=== PATIENT | male | born 1945 | race Caucasian/White ===

== ENCOUNTER 2023-01-05 07:30 | Emergency (ER) | payer MEDICARE, OTHER ==
[~2023-01-05] VITALS: Ht 175.3 cm; Wt 97.7 kg
[2023-01-05] MEDS ORDERED: FOLI0.8T2 PO (07:41)
[2023-01-05] MEDS ORDERED: CARV6 PO (07:41)
[2023-01-05] MEDS ORDERED: BUPR-72 PO (07:41)
[2023-01-05] MEDS ORDERED: SODI650T33 PO (07:41)
[2023-01-05] MEDS ORDERED: SIME80TA82 PO (07:41)
[2023-01-05] MEDS ORDERED: SEVE800 PO (07:41)
[2023-01-05] MEDS ORDERED: BUSP5TAB20 PO (07:41)
[2023-01-05] MEDS ORDERED: HYDR-4723 PO (07:41)
[2023-01-05] MEDS ORDERED: LORA-1000 PO (07:41)
[2023-01-05] MEDS ORDERED: TAMS-13 PO (07:41)
[2023-01-05] MEDS ORDERED: INSU100V SQ (07:41)
[2023-01-05] MEDS ORDERED: MELA5TAB40 PO (07:41)
[2023-01-05] MEDS ORDERED: SENN-187 PO (07:41)
[2023-01-05] MEDS ORDERED: ALPR-705 PO (07:41)
[2023-01-05] MEDS ORDERED: POLY17PO47 PO (07:41)
[2023-01-05 09:08] LABS: BASOPHILS % (AUTO) 0.7 % (0.0-2.0); EOSINOPHILS % (AUTO) 1.7 % (1.0-6.0); HEMATOCRIT 23.2 % (41-53); HEMOGLOBIN 7.8 g/dL (13.5-17.5); LYMPHOCYTES # (AUTO) 0.5 K/uL (1.0-4.8); MEAN CORPUSCULAR HEMOGLOBIN 31.1 pg (26.0-34.0); MEAN CORPUSCULAR HGB CONC 33.8 G/dL (31.0-37.0); MEAN CORPUSCULAR VOLUME 92 fL (80-100); MONOCYTES # (AUTO) 0.7 K/uL (0.1-1.0); MONOCYTES % (AUTO) 8.1 % (2.0-9.0); NEUTROPHILS % (AUTO) 83.5 % (40.0-70.0); PLATELET COUNT (AUTO) 232 K/uL (150-450); RED BLOOD CELL COUNT(AUTO) 2.52 MIL/uL (4.50-5.90); RED CELL DISTRIBUTION WIDTH 16.5 % (11.5-14.5)
[2023-01-05 09:27] LABS: CALCIUM, TOTAL 8.8 mg/dL (8.8-10.5); CREATININE 3.2 mg/dL (0.60-1.30); POTASSIUM 3.8 mmol/L (3.5-5.1)
[2023-01-05 09:32] LABS: ALBUMIN 2.6 g/dL (3.4-5.0); BILIRUBIN,TOTAL 0.5 mg/dL (0.1-1.0); TOTAL PROTEIN, SERUM 6.6 g/dL (6.4-8.2)
[2023-01-05 10:02] VITALS: BP 125/73
== END 2023-01-05 11:22 | disposition home or self-care (01) ==
LOC: EMS 07:32
DX: D64.9 Anemia, unspecified (principal); F41.9 Anxiety disorder, unspecified; F03.90 Unspecified dementia, unspecified severity, without behavioral disturbance, psychotic disturbance, mood disturbance, and anxiety; F32.A Depression, unspecified; E11.9 Type 2 diabetes mellitus without complications; I10 Essential (primary) hypertension; N40.0 Benign prostatic hyperplasia without lower urinary tract symptoms; Z98.890 Other specified postprocedural states
CPT/HCPCS: 80053; 85025; 86850; 86900; 86901; 99283

== ENCOUNTER 2023-02-09 08:42 | Inpatient (IN) | payer MEDICARE, OTHER ==
[~2023-02-09] VITALS: Ht 182.9 cm; Wt 72.1 kg
[~2023-02-09 08:42] MED LIST: ALPR-705 PO; BUPR-72 PO; BUSP5TAB20 PO; CARV6 PO; FOLI0.8T2 PO; HYDR-4723 PO; INSU100V SQ; LORA-1000 PO; MELA5TAB40 PO; POLY17PO47 PO; SENN-376 PO; SEVE800 PO; SIME80TA82 PO; SODI650T33 PO; TAMS-13 PO
[2023-02-09] MEDS ORDERED: CEFEPIME HCL 2 GM in DEXTROSE 5%-WATER 50 ML IV ONE (09:30)
[2023-02-09] MEDS ORDERED: VANCOMYCIN HCL 1.25 GM in DEXTROSE 5%-WATER 250 ML IV ONE (09:30)
[2023-02-09] MEDS ORDERED: 0.9% SODIUM CHLORIDE 10 ML SYRINGE IVP PRN ×2 (09:30→11:45)
[2023-02-09 09:31] LABS: GLUCOMETER DEV NAME(LOC) ER.6
[2023-02-09] MEDS ORDERED: AMLO-257 PO (09:38)
[2023-02-09] MEDS ORDERED: ACET325S20 PR (09:38)
[2023-02-09] MEDS ORDERED: BUSP5TAB20 PO (09:38)
[2023-02-09] MEDS ORDERED: CLON0.1T2 PO (09:38)
[2023-02-09 09:55] LABS: BASOPHILS % (AUTO) 0.5 % (0.0-2.0); EOSINOPHILS % (AUTO) 0.8 % (1.0-6.0); HEMATOCRIT 28.1 % (41-53); HEMOGLOBIN 9.2 g/dL (13.5-17.5); LYMPHOCYTES # (AUTO) 0.5 K/uL (1.0-4.8); LYMPHOCYTES % (AUTO) 6.9 % (22.0-44.0); MEAN CORPUSCULAR HEMOGLOBIN 29.2 pg (26.0-34.0); MEAN CORPUSCULAR HGB CONC 32.7 G/dL (31.0-37.0); MEAN CORPUSCULAR VOLUME 89 fL (80-100); MONOCYTES # (AUTO) 0.5 K/uL (0.1-1.0); MONOCYTES % (AUTO) 6.6 % (2.0-9.0); NEUTROPHILS # (AUTO) 6.6 K/uL (1.8-7.7); PLATELET COUNT (AUTO) 258 K/uL (150-450); RED BLOOD CELL COUNT(AUTO) 3.14 MIL/uL (4.50-5.90); RED CELL DISTRIBUTION WIDTH 15.6 % (11.5-14.5)
[2023-02-09 09:58] LABS: NEUTROPHILS % (AUTO) 85.2 % (40.0-70.0)
[2023-02-09 10:06] LABS: ANION GAP 6 mmol/L (8-16); CALCIUM, TOTAL 8.9 mg/dL (8.8-10.5); CARBON DIOXIDE 32 mmol/L (22-29); CHLORIDE 99 mmol/L (98-107); CREATININE 2.94 mg/dL (0.60-1.30); GLOMERULAR FILTR. RATE CALC 21 mL/min (>60); GLUCOSE,RANDOM 106 mg/dL (70-110); POTASSIUM 3.9 mmol/L (3.5-5.1); SODIUM SERUM 137 mmol/L (136-145)
[2023-02-09 10:07] LABS: INR 1.1 (0.9-1.1); PROTHROMBIN TIME 11.9 SEC (9.4-11.6)
[2023-02-09 10:12] LABS: ALBUMIN 2.3 g/dL (3.4-5.0); ALKALINE PHOSPHATASE 87 U/L (46-116); ASPARTATE AMINOTRANSFERASE 13 U/L (15-37); BILIRUBIN,TOTAL 0.5 mg/dL (0.1-1.0); CREATINE KINASE, TOTAL ONLY 10 U/L (39-308); LACTIC ACID 0.8 mmol/L (0.4-2.0); TOTAL PROTEIN, SERUM 6.7 g/dL (6.4-8.2)
[2023-02-09 10:13] LABS: B-TYPE NATRIURETIC PEPTIDE 2130 pg/mL (0-100)
[2023-02-09 10:30] LABS: ALANINE AMINOTRANSFERASE < 6 U/L (12-78)
[2023-02-09] MEDS ORDERED: ACETAMINOPHEN 325 MG TABLET PO PRN (11:45)
[2023-02-09] MEDS ORDERED: ONDANSETRON HCL 4 MG/2 ML VIAL IVP PRN ×2 (11:45→14:00)
[2023-02-09 13:46] VITALS: BP 156/82; PULSE 77; RESP 20; TEMP 97.5
[2023-02-09] MEDS ORDERED: MAGNESIUM HYDROXIDE SUSPENSION 30 ML UDCUP PO PRN (14:00)
[2023-02-09] MEDS ORDERED: MELATONIN 5 MG TABLET PO PRN (14:00)
[2023-02-09] MEDS ORDERED: BISACODYL 10 MG RECTAL RECTAL SUPPOSITORY PR PRN (14:00)
[2023-02-09] MEDS ORDERED: VANCOMYCIN 1GM/WATER(PEG/NADA) 200 ML IV PRN (14:30)
[2023-02-09] MEDS ORDERED: PNEUMOCOCCAL VACCINE POLYVALENT 0.5 ML VIAL [PPSV23] IM. ONE (16:45)
[2023-02-09] MEDS: HEPARIN SODIUM,PORCINE 5,000 UNITS/ML VIAL SQ SCH ×2 (16:45→22:30)
[2023-02-09 17:41] LABS: GLUCOMETER DEV NAME(LOC) 6S.2
[2023-02-09] MEDS: SEVELAMER CARBONATE 800 MG TABLET PO SCH (18:25)
[2023-02-09] MEDS: DEXTROSE 5%-0.45% SODIUM CHL 1,000 ML IV SCH (18:37)
[2023-02-09 19:52] VITALS: BP 159/87; PULSE 80; RESP 20; TEMP 98.5
[2023-02-09] MEDS: DOCUSATE SODIUM 100 MG CAPSULE PO SCH ×2 (21:00→21:50)
[2023-02-09] MEDS: CARVEDILOL 6.25 MG TABLET PO SCH ×2 (21:00→21:50)
[2023-02-09] MEDS: TAMSULOSIN HCL 0.4 MG CAPSULE PO SCH (21:50)
[2023-02-09 22:06] LABS: GLUCOMETER DEV NAME(LOC) 6S.1B
[2023-02-10] VITALS (13 sets, daily range): BP systolic 119–175; BP diastolic 64–108; PULSE 69–81; RESP 16–22; TEMP 97.2–98.9
[2023-02-10 06:16] LABS: GLUCOMETER DEV NAME(LOC) 6S.2
[2023-02-10 06:30] LABS: BASOPHILS % (AUTO) 0.6 % (0.0-2.0); EOSINOPHILS % (AUTO) 0.8 % (1.0-6.0); HEMATOCRIT 27.1 % (41-53); HEMOGLOBIN 8.8 g/dL (13.5-17.5); LYMPHOCYTES # (AUTO) 0.6 K/uL (1.0-4.8); LYMPHOCYTES % (AUTO) 8.2 % (22.0-44.0); MEAN CORPUSCULAR HEMOGLOBIN 28.5 pg (26.0-34.0); MEAN CORPUSCULAR HGB CONC 32.3 G/dL (31.0-37.0); MEAN CORPUSCULAR VOLUME 88 fL (80-100); MONOCYTES # (AUTO) 0.5 K/uL (0.1-1.0); MONOCYTES % (AUTO) 6.9 % (2.0-9.0); NEUTROPHILS # (AUTO) 5.6 K/uL (1.8-7.7); NEUTROPHILS % (AUTO) 83.5 % (40.0-70.0); PLATELET COUNT (AUTO) 266 K/uL (150-450); RED BLOOD CELL COUNT(AUTO) 3.08 MIL/uL (4.50-5.90); RED CELL DISTRIBUTION WIDTH 15.3 % (11.5-14.5)
[2023-02-10 06:49] LABS: VANCOMYCIN,RANDOM 12.3 mcg/mL (25.0-50.0)
[2023-02-10] MEDS ORDERED: CeFAZolin 1 GM/DEXTROSE 50 ML BAG IV ONE (07:00)
[2023-02-10] MEDS ORDERED: BUPIVACAINE HCL 0.25% 50 ML VIAL ONE ×2 (07:12→08:27)
[2023-02-10] MEDS ORDERED: VANCOMYCIN HCL 1 GM/VIAL ONE (07:15)
[2023-02-10] MEDS ORDERED: SODIUM CL IRRIG SOLN BAG 3,000 ML IRRIG ONE (07:16)
[2023-02-10] MEDS ORDERED: BUPIVACAINE LIPOSOME/PF 1.3%-13.3MG/ML SUSPENSION 20 ML VIAL INJ ONE (07:30)
[2023-02-10] MEDS ORDERED: NOREPINEPHRINE 8 MG/0.9 % NACL 250 ML IV PRN (07:30)
[2023-02-10] MEDS ORDERED: SODIUM CHLORIDE 0.9% 1,000 ML ONE (07:31)
[2023-02-10 07:33] LABS: ALBUMIN 2.1 g/dL (3.4-5.0); ALKALINE PHOSPHATASE 77 U/L (46-116); ANION GAP 8 mmol/L (8-16); ASPARTATE AMINOTRANSFERASE 12 U/L (15-37); BILIRUBIN,TOTAL 0.4 mg/dL (0.1-1.0); CALCIUM, TOTAL 8.7 mg/dL (8.8-10.5); CARBON DIOXIDE 27 mmol/L (22-29); CHLORIDE 100 mmol/L (98-107); CREATININE 3.89 mg/dL (0.60-1.30); GLOMERULAR FILTR. RATE CALC 15 mL/min (>60); GLUCOSE,RANDOM 124 mg/dL (70-110); POTASSIUM 3.9 mmol/L (3.5-5.1); SODIUM SERUM 135 mmol/L (136-145); TOTAL PROTEIN, SERUM 6.2 g/dL (6.4-8.2)
[2023-02-10 07:35] LABS: ALANINE AMINOTRANSFERASE < 6 U/L (12-78)
[2023-02-10] MEDS: SEVELAMER CARBONATE 800 MG TABLET PO SCH ×3 (08:00→20:49)
[2023-02-10] MEDS ORDERED: MUPIROCIN CALCIUM 2% 22 GM OINTMENT ONE (08:27)
[2023-02-10] MEDS ORDERED: BUPIVACAINE HCL 0.25% 50 ML VIAL ID ONE (08:28)
[2023-02-10] MEDS ORDERED: MUPIROCIN CALCIUM 2% 22 GM OINTMENT TP ONE (08:30)
[2023-02-10] MEDS ORDERED: VANCOMYCIN HCL 1 GM/VIAL IRRIG ONE (08:33)
[2023-02-10] MEDS: CeFAZolin 1 GM/DEXTROSE 50 ML IV SCH ×2 (14:00→20:41)
[2023-02-10] MEDS ORDERED: VANCOMYCIN 1GM/WATER(PEG/NADA) 200 ML IV ONE (14:00)
[2023-02-10] MEDS: DOCUSATE SODIUM 100 MG CAPSULE PO SCH ×2 (14:01→20:49)
[2023-02-10] MEDS: HEPARIN SODIUM,PORCINE 5,000 UNITS/ML VIAL SQ SCH (14:01)
[2023-02-10] MEDS: CARVEDILOL 6.25 MG TABLET PO SCH ×2 (14:01→20:48)
[2023-02-10] MEDS: PANTOPRAZOLE SODIUM 40 MG DR TABLET PO SCH (14:01)
[2023-02-10] MEDS: AmLODIPine BESYLATE 5 MG TABLET PO SCH (14:02)
[2023-02-10] MEDS: HYDROCODONE/ACETAMINOPHEN 5-325 MG TABLET PO PRN ×2 (15:24→21:06)
[2023-02-10] MEDS: OXYGEN THERAPY IH SCH (20:00)
[2023-02-10 20:31] LABS: GLUCOMETER DEV NAME(LOC) 6N.1
[2023-02-10] MEDS: TAMSULOSIN HCL 0.4 MG CAPSULE PO SCH (20:48)
[2023-02-10] MEDS ORDERED: HEPARIN SODIUM,PORCINE 1,000 UNITS/ML VIAL IVP ONE (21:36)
[2023-02-11] MEDS: CeFAZolin 1 GM/DEXTROSE 50 ML IV SCH ×3 (03:47→19:53)
[2023-02-11 05:02] VITALS: BP 165/99; PULSE 82; RESP 20; TEMP 97.6
[2023-02-11] MEDS: HYDROCODONE/ACETAMINOPHEN 5-325 MG TABLET PO PRN ×2 (05:59→19:52)
[2023-02-11] MEDS: AmLODIPine BESYLATE 5 MG TABLET PO SCH (06:00)
[2023-02-11 06:44] LABS: BASOPHILS % (AUTO) 0.4 % (0.0-2.0); EOSINOPHILS % (AUTO) 0.5 % (1.0-6.0); HEMATOCRIT 25.3 % (41-53); HEMOGLOBIN 8.4 g/dL (13.5-17.5); LYMPHOCYTES # (AUTO) 0.5 K/uL (1.0-4.8); LYMPHOCYTES % (AUTO) 5.9 % (22.0-44.0); MEAN CORPUSCULAR HEMOGLOBIN 29.4 pg (26.0-34.0); MEAN CORPUSCULAR HGB CONC 33.3 G/dL (31.0-37.0); MEAN CORPUSCULAR VOLUME 88 fL (80-100); MONOCYTES # (AUTO) 0.6 K/uL (0.1-1.0); MONOCYTES % (AUTO) 6.3 % (2.0-9.0); NEUTROPHILS # (AUTO) 7.6 K/uL (1.8-7.7); PLATELET COUNT (AUTO) 242 K/uL (150-450); RED BLOOD CELL COUNT(AUTO) 2.87 MIL/uL (4.50-5.90); RED CELL DISTRIBUTION WIDTH 15.3 % (11.5-14.5)
[2023-02-11 06:49] LABS: NEUTROPHILS % (AUTO) 86.9 % (40.0-70.0)
[2023-02-11 07:01] LABS: CALCIUM, TOTAL 8.4 mg/dL (8.8-10.5); CREATININE 2.95 mg/dL (0.60-1.30); PHOSPHORUS 2.6 mg/dL (2.5-4.9); POTASSIUM 3.8 mmol/L (3.5-5.1)
[2023-02-11] MEDS: OXYGEN THERAPY IH SCH ×2 (08:00→20:00)
[2023-02-11] MEDS: HEPARIN SODIUM,PORCINE 5,000 UNITS/ML VIAL SQ SCH ×4 (08:00→23:20)
[2023-02-11 08:10] VITALS: BP 154/72; PULSE 79; RESP 20; TEMP 97.4
[2023-02-11 08:46] LABS: GLUCOMETER DEV NAME(LOC) 6S.2
[2023-02-11] MEDS: CARVEDILOL 6.25 MG TABLET PO SCH ×2 (08:48→19:51)
[2023-02-11] MEDS: DEXTROSE 5%-0.45% SODIUM CHL 1,000 ML IV SCH (08:49)
[2023-02-11] MEDS: SEVELAMER CARBONATE 800 MG TABLET PO SCH ×3 (08:49→18:25)
[2023-02-11] MEDS: PANTOPRAZOLE SODIUM 40 MG DR TABLET PO SCH (08:56)
[2023-02-11] MEDS: DOCUSATE SODIUM 100 MG CAPSULE PO SCH ×2 (08:56→20:02)
[2023-02-11 15:56] LABS: GLUCOMETER DEV NAME(LOC) 6S.2
[2023-02-11 16:19] VITALS: BP 132/63; PULSE 69; RESP 18; TEMP 98
[2023-02-11] MEDS: MORPHINE SULFATE 2 MG/ML SYRINGE IVP PRN (18:44)
[2023-02-11 19:37] VITALS: BP 158/73; PULSE 88; RESP 18; TEMP 97.4
[2023-02-11] MEDS: TAMSULOSIN HCL 0.4 MG CAPSULE PO SCH (20:02)
[2023-02-11] MEDS ORDERED: SODIUM CHLORIDE 0.9% 500 ML IV ONE (20:05)
[2023-02-11] MEDS: ZOLPIDEM TARTRATE 5 MG TABLET PO PRN (21:42)
[2023-02-12] MEDS: HYDROCODONE/ACETAMINOPHEN 5-325 MG TABLET PO PRN (01:04)
[2023-02-12 04:10] VITALS: BP 162/84; PULSE 83; RESP 20; TEMP 97.9
[2023-02-12 05:11] LABS: GLUCOMETER DEV NAME(LOC) 6N.1
[2023-02-12 05:11] LABS: GLUCOMETER DEV NAME(LOC) 4E.2
[2023-02-12] MEDS: CARVEDILOL 6.25 MG TABLET PO SCH ×2 (05:51→22:14)
[2023-02-12 07:47] LABS: BASOPHILS % (AUTO) 0.3 % (0.0-2.0); EOSINOPHILS % (AUTO) 1.2 % (1.0-6.0); HEMATOCRIT 25.5 % (41-53); HEMOGLOBIN 8.5 g/dL (13.5-17.5); LYMPHOCYTES # (AUTO) 0.5 K/uL (1.0-4.8); LYMPHOCYTES % (AUTO) 6.2 % (22.0-44.0); MEAN CORPUSCULAR HEMOGLOBIN 29.3 pg (26.0-34.0); MEAN CORPUSCULAR HGB CONC 33.1 G/dL (31.0-37.0); MEAN CORPUSCULAR VOLUME 88 fL (80-100); MONOCYTES # (AUTO) 0.6 K/uL (0.1-1.0); MONOCYTES % (AUTO) 7.3 % (2.0-9.0); NEUTROPHILS # (AUTO) 6.5 K/uL (1.8-7.7); PLATELET COUNT (AUTO) 209 K/uL (150-450); RED BLOOD CELL COUNT(AUTO) 2.89 MIL/uL (4.50-5.90); RED CELL DISTRIBUTION WIDTH 15.7 % (11.5-14.5)
[2023-02-12 07:54] LABS: CALCIUM, TOTAL 8.4 mg/dL (8.8-10.5); CREATININE 4.37 mg/dL (0.60-1.30); POTASSIUM 3.8 mmol/L (3.5-5.1)
[2023-02-12] MEDS: OXYGEN THERAPY IH SCH ×2 (08:00→20:00)
[2023-02-12] MEDS: HEPARIN SODIUM,PORCINE 5,000 UNITS/ML VIAL SQ SCH ×3 (08:00→23:26)
[2023-02-12 08:02] VITALS: BP 158/82; PULSE 84; RESP 20; TEMP 98
[2023-02-12] MEDS: SEVELAMER CARBONATE 800 MG TABLET PO SCH ×3 (08:07→18:12)
[2023-02-12] MEDS: AmLODIPine BESYLATE 5 MG TABLET PO SCH (08:07)
[2023-02-12] MEDS: PANTOPRAZOLE SODIUM 40 MG DR TABLET PO SCH (08:14)
[2023-02-12] MEDS: DOCUSATE SODIUM 100 MG CAPSULE PO SCH ×2 (08:14→21:00)
[2023-02-12 10:20] LABS: GLUCOMETER DEV NAME(LOC) 6S.2
[2023-02-12 15:06] VITALS: BP 148/78; PULSE 78; RESP 18; TEMP 97.8
[2023-02-12] MEDS: TAMSULOSIN HCL 0.4 MG CAPSULE PO SCH (21:00)
[2023-02-12 22:14] VITALS: BP 174/84; PULSE 86; RESP 20; TEMP 97.8
[2023-02-13] VITALS (12 sets, daily range): BP systolic 117–174; BP diastolic 70–84; PULSE 74–85; RESP 16–20; TEMP 97.6–98.6
[2023-02-13 01:46] LABS: GLUCOMETER DEV NAME(LOC) 6S.2
[2023-02-13] MEDS: HYDROCODONE/ACETAMINOPHEN 5-325 MG TABLET PO PRN (05:57)
[2023-02-13 06:47] LABS: GLUCOMETER DEV NAME(LOC) 6N.1
[2023-02-13] MEDS: OXYGEN THERAPY IH SCH ×2 (08:00→20:00)
[2023-02-13] MEDS: HEPARIN SODIUM,PORCINE 5,000 UNITS/ML VIAL SQ SCH ×3 (08:00→23:59)
[2023-02-13] MEDS: CARVEDILOL 6.25 MG TABLET PO SCH ×2 (08:09→21:05)
[2023-02-13] MEDS: AmLODIPine BESYLATE 5 MG TABLET PO SCH (08:09)
[2023-02-13] MEDS: SEVELAMER CARBONATE 800 MG TABLET PO SCH ×3 (08:09→17:45)
[2023-02-13] MEDS: EPOETIN ALFA 10,000 UNITS/ML 2 ML VIAL SQ SCH (08:13)
[2023-02-13] MEDS: DOCUSATE SODIUM 100 MG CAPSULE PO SCH ×3 (08:21→21:05)
[2023-02-13] MEDS: PANTOPRAZOLE SODIUM 40 MG DR TABLET PO SCH (08:21)
[2023-02-13] MEDS ORDERED: SODIUM CHLORIDE 0.9% 2,000 ML ONE (10:34)
[2023-02-13] MEDS: ASPIRIN 81 MG CHEWABLE TABLET PO SCH (12:00)
[2023-02-13] MEDS ORDERED: VANCOMYCIN HCL 750 MG in DEXTROSE 5%-WATER 250 ML IV ONE (21:00)
[2023-02-13] MEDS: TAMSULOSIN HCL 0.4 MG CAPSULE PO SCH (21:05)
[2023-02-13 21:31] LABS: GLUCOMETER DEV NAME(LOC) 6S.2
[2023-02-14 05:45] VITALS: BP 177/92; PULSE 83; RESP 20; TEMP 98.5
[2023-02-14 06:11] LABS: GLUCOMETER DEV NAME(LOC) 6N.1
[2023-02-14] MEDS: AmLODIPine BESYLATE 5 MG TABLET PO SCH (06:16)
[2023-02-14 06:34] LABS: BASOPHILS % (AUTO) 0.5 % (0.0-2.0); EOSINOPHILS % (AUTO) 1.3 % (1.0-6.0); HEMATOCRIT 28.4 % (41-53); HEMOGLOBIN 9.3 g/dL (13.5-17.5); LYMPHOCYTES # (AUTO) 0.5 K/uL (1.0-4.8); LYMPHOCYTES % (AUTO) 7.8 % (22.0-44.0); MEAN CORPUSCULAR HEMOGLOBIN 28.7 pg (26.0-34.0); MEAN CORPUSCULAR HGB CONC 32.7 G/dL (31.0-37.0); MEAN CORPUSCULAR VOLUME 88 fL (80-100); MONOCYTES # (AUTO) 0.5 K/uL (0.1-1.0); MONOCYTES % (AUTO) 7.2 % (2.0-9.0); NEUTROPHILS # (AUTO) 5.2 K/uL (1.8-7.7); NEUTROPHILS % (AUTO) 83.2 % (40.0-70.0); PLATELET COUNT (AUTO) 227 K/uL (150-450); RED BLOOD CELL COUNT(AUTO) 3.24 MIL/uL (4.50-5.90)
[2023-02-14 06:36] LABS: GLUCOMETER DEV NAME(LOC) 6S.2
[2023-02-14 06:55] LABS: CALCIUM, TOTAL 8.8 mg/dL (8.8-10.5); CREATININE 3.68 mg/dL (0.60-1.30); POTASSIUM 4.4 mmol/L (3.5-5.1)
[2023-02-14] MEDS: ACETAMINOPHEN 325 MG TABLET PO PRN (06:55)
[2023-02-14] MEDS: HEPARIN SODIUM,PORCINE 5,000 UNITS/ML VIAL SQ SCH ×2 (08:00→16:00)
[2023-02-14] MEDS: OXYGEN THERAPY IH SCH (08:00)
[2023-02-14] MEDS: CARVEDILOL 6.25 MG TABLET PO SCH ×2 (08:35→20:42)
[2023-02-14] MEDS: SEVELAMER CARBONATE 800 MG TABLET PO SCH ×3 (08:36→18:08)
[2023-02-14] MEDS: PANTOPRAZOLE SODIUM 40 MG DR TABLET PO SCH (08:36)
[2023-02-14] MEDS: DOCUSATE SODIUM 100 MG CAPSULE PO SCH ×2 (08:36→20:42)
[2023-02-14] MEDS: ASPIRIN 81 MG CHEWABLE TABLET PO SCH ×2 (08:36→09:00)
[2023-02-14 11:24] VITALS: BP 148/78; PULSE 72; RESP 19; TEMP 98.3
[2023-02-14] MEDS: HYDROCODONE/ACETAMINOPHEN 5-325 MG TABLET PO PRN ×2 (12:58→22:29)
[2023-02-14 16:19] VITALS: BP 146/69; PULSE 76; RESP 19; TEMP 98.5
[2023-02-14 20:05] VITALS: BP 138/81; PULSE 76; RESP 19; TEMP 97.9
[2023-02-14] MEDS: TAMSULOSIN HCL 0.4 MG CAPSULE PO SCH (20:42)
[2023-02-14 21:16] LABS: GLUCOMETER DEV NAME(LOC) 6S.1B
[2023-02-15] VITALS (21 sets, daily range): BP systolic 92–188; BP diastolic 59–93; PULSE 63–86; RESP 16–20; TEMP 97.2–98.9
[2023-02-15 03:17] LABS: GLUCOMETER DEV NAME(LOC) 6S.2
[2023-02-15 03:17] LABS: GLUCOMETER DEV NAME(LOC) 6S.2
[2023-02-15 06:56] LABS: BASOPHILS % (AUTO) 0.8 % (0.0-2.0); EOSINOPHILS % (AUTO) 1.8 % (1.0-6.0); HEMATOCRIT 29.4 % (41-53); HEMOGLOBIN 9.5 g/dL (13.5-17.5); LYMPHOCYTES # (AUTO) 0.4 K/uL (1.0-4.8); LYMPHOCYTES % (AUTO) 7.9 % (22.0-44.0); MEAN CORPUSCULAR HEMOGLOBIN 28.7 pg (26.0-34.0); MEAN CORPUSCULAR HGB CONC 32.5 G/dL (31.0-37.0); MEAN CORPUSCULAR VOLUME 89 fL (80-100); MONOCYTES # (AUTO) 0.4 K/uL (0.1-1.0); MONOCYTES % (AUTO) 7.8 % (2.0-9.0); NEUTROPHILS # (AUTO) 4.4 K/uL (1.8-7.7); NEUTROPHILS % (AUTO) 81.7 % (40.0-70.0); PLATELET COUNT (AUTO) 205 K/uL (150-450); RED BLOOD CELL COUNT(AUTO) 3.32 MIL/uL (4.50-5.90)
[2023-02-15 07:10] LABS: INR 1.2 (0.9-1.1)
[2023-02-15 07:13] LABS: CALCIUM, TOTAL 9.1 mg/dL (8.8-10.5); CREATININE 4.83 mg/dL (0.60-1.30); POTASSIUM 4.8 mmol/L (3.5-5.1)
[2023-02-15] MEDS: OXYGEN THERAPY IH SCH (08:00)
[2023-02-15] MEDS: HEPARIN SODIUM,PORCINE 5,000 UNITS/ML VIAL SQ SCH ×3 (08:00→16:00)
[2023-02-15] MEDS: SEVELAMER CARBONATE 800 MG TABLET PO SCH ×3 (08:27→19:30)
[2023-02-15] MEDS: DOCUSATE SODIUM 100 MG CAPSULE PO SCH ×2 (08:28→20:56)
[2023-02-15] MEDS: CARVEDILOL 6.25 MG TABLET PO SCH ×2 (08:28→20:56)
[2023-02-15] MEDS: AmLODIPine BESYLATE 5 MG TABLET PO SCH (08:29)
[2023-02-15] MEDS: ASPIRIN 81 MG CHEWABLE TABLET PO SCH (08:29)
[2023-02-15] MEDS: PANTOPRAZOLE SODIUM 40 MG DR TABLET PO SCH (08:36)
[2023-02-15] MEDS: EPOETIN ALFA 10,000 UNITS/ML 2 ML VIAL SQ SCH (08:38)
[2023-02-15] MEDS ORDERED: SODIUM CHLORIDE 0.9% 1,000 ML ONE ×2 (11:39→11:40)
[2023-02-15] MEDS: HYDROCODONE/ACETAMINOPHEN 5-325 MG TABLET PO PRN (11:43)
[2023-02-15] MEDS ORDERED: IODIXANOL 320 MG/ML 150 ML VIAL ONE (13:11)
[2023-02-15] MEDS ORDERED: SODIUM BICARBONATE 50 MEQ/50 ML VIAL ONE (13:11)
[2023-02-15] MEDS ORDERED: IODIXANOL 320 MG/ML 50 ML VIAL ONE ×2 (13:11→14:56)
[2023-02-15] MEDS ORDERED: HEPARIN SODIUM 1000 UNITS/NS 500 ML ONE (13:11)
[2023-02-15] MEDS ORDERED: LIDOCAINE/PF 1% 30 ML VIAL ONE (13:11)
[2023-02-15 13:41] LABS: GLUCOMETER DEV NAME(LOC) 6S.2
[2023-02-15] MEDS ORDERED: IODIXANOL 320 MG/ML 100 ML VIAL ONE (14:56)
[2023-02-15] MEDS ORDERED: FentaNYL CITRATE PF 100 MCG/2 ML VIAL ONE (15:10)
[2023-02-15] MEDS ORDERED: MIDAZOLAM HCL 2 MG/2 ML VIAL ONE ×2 (15:10→16:56)
[2023-02-15] MEDS ORDERED: HEPARIN SODIUM 1000 UNITS/NS 500 ML IARTER ONE (15:30)
[2023-02-15] MEDS ORDERED: FentaNYL CITRATE PF 100 MCG/2 ML VIAL IVP ONE ×3 (15:30→16:45)
[2023-02-15] MEDS ORDERED: IODIXANOL 320 MG/ML 150 ML VIAL IARTER ONE (15:30)
[2023-02-15] MEDS ORDERED: IODIXANOL 320 MG/ML 50 ML VIAL IARTER ONE ×2 (15:30→16:45)
[2023-02-15] MEDS ORDERED: MIDAZOLAM HCL 2 MG/2 ML VIAL IVP ONE ×3 (15:30→16:45)
[2023-02-15] MEDS ORDERED: NITROGLYCERIN 50 MG/D5% WATER 250 ML ONE (15:56)
[2023-02-15] MEDS ORDERED: NITROGLYCERIN/D5W 50 MG/250 ML IV BOTTLE IARTER ONE ×2 (16:45→18:00)
[2023-02-15] MEDS ORDERED: CLOPIDOGREL BISULFATE 75 MG TABLET PO ONE (17:00)
[2023-02-15] MEDS ORDERED: VANCOMYCIN HCL 500 MG in DEXTROSE 5%-WATER 100 ML IV ONE (17:00)
[2023-02-15] MEDS ORDERED: HEPARIN SODIUM,PORCINE 5,000 UNITS/ML VIAL IVP ONE (17:45)
[2023-02-15] MEDS ORDERED: HEPARIN SODIUM,PORCINE 1,000 UNITS/ML 10 ML VIAL IVP ONE (18:00)
[2023-02-15] MEDS: TAMSULOSIN HCL 0.4 MG CAPSULE PO SCH (20:56)
[2023-02-15 21:01] LABS: GLUCOMETER DEV NAME(LOC) 6N.1
[2023-02-16] VITALS (8 sets, daily range): BP systolic 132–170; BP diastolic 72–97; PULSE 80–92; RESP 20; TEMP 97.5–98.1
[2023-02-16] MEDS: MORPHINE SULFATE 2 MG/ML SYRINGE IVP PRN (00:15)
[2023-02-16 07:16] LABS: BASOPHILS % (AUTO) 0.5 % (0.0-2.0); EOSINOPHILS % (AUTO) 1.1 % (1.0-6.0); HEMATOCRIT 27.4 % (41-53); HEMOGLOBIN 9.1 g/dL (13.5-17.5); LYMPHOCYTES # (AUTO) 0.4 K/uL (1.0-4.8); LYMPHOCYTES % (AUTO) 7.9 % (22.0-44.0); MEAN CORPUSCULAR HEMOGLOBIN 29.5 pg (26.0-34.0); MEAN CORPUSCULAR HGB CONC 33.3 G/dL (31.0-37.0); MEAN CORPUSCULAR VOLUME 89 fL (80-100); MONOCYTES # (AUTO) 0.4 K/uL (0.1-1.0); MONOCYTES % (AUTO) 7.2 % (2.0-9.0); NEUTROPHILS # (AUTO) 4.7 K/uL (1.8-7.7); NEUTROPHILS % (AUTO) 83.3 % (40.0-70.0); PLATELET COUNT (AUTO) 187 K/uL (150-450); RED CELL DISTRIBUTION WIDTH 15.9 % (11.5-14.5)
[2023-02-16 07:25] LABS: CALCIUM, TOTAL 8.9 mg/dL (8.8-10.5); CREATININE 3.82 mg/dL (0.60-1.30); POTASSIUM 4.5 mmol/L (3.5-5.1)
[2023-02-16] MEDS: HEPARIN SODIUM,PORCINE 5,000 UNITS/ML VIAL SQ SCH ×4 (08:00→23:05)
[2023-02-16] MEDS: OXYGEN THERAPY IH SCH ×2 (08:00→20:00)
[2023-02-16 08:01] LABS: GLUCOMETER DEV NAME(LOC) 6S.2
[2023-02-16] MEDS: DOCUSATE SODIUM 100 MG CAPSULE PO SCH ×2 (09:24→20:32)
[2023-02-16] MEDS: SEVELAMER CARBONATE 800 MG TABLET PO SCH ×3 (09:24→17:52)
[2023-02-16] MEDS: AmLODIPine BESYLATE 5 MG TABLET PO SCH (09:24)
[2023-02-16] MEDS: CARVEDILOL 6.25 MG TABLET PO SCH ×2 (09:25→20:32)
[2023-02-16] MEDS: CLOPIDOGREL BISULFATE 75 MG TABLET PO SCH (09:25)
[2023-02-16] MEDS: PANTOPRAZOLE SODIUM 40 MG DR TABLET PO SCH (09:25)
[2023-02-16] MEDS: ASPIRIN 81 MG CHEWABLE TABLET PO SCH (09:25)
[2023-02-16 16:37] LABS: GLUCOMETER DEV NAME(LOC) 6N.1
[2023-02-16] MEDS: TAMSULOSIN HCL 0.4 MG CAPSULE PO SCH (20:32)
[2023-02-17] VITALS (13 sets, daily range): BP systolic 120–168; BP diastolic 73–94; PULSE 73–86; RESP 18–20; TEMP 96.4–98.1
[2023-02-17 05:41] LABS: GLUCOMETER DEV NAME(LOC) 6S.1B
[2023-02-17 05:41] LABS: GLUCOMETER DEV NAME(LOC) 6S.1B
[2023-02-17 06:47] LABS: GLUCOMETER DEV NAME(LOC) 4E.2
[2023-02-17] MEDS: HEPARIN SODIUM,PORCINE 5,000 UNITS/ML VIAL SQ SCH ×3 (08:00→23:47)
[2023-02-17] MEDS: OXYGEN THERAPY IH SCH ×2 (08:00→20:00)
[2023-02-17] MEDS: EPOETIN ALFA 10,000 UNITS/ML 2 ML VIAL SQ SCH (08:31)
[2023-02-17] MEDS: PANTOPRAZOLE SODIUM 40 MG DR TABLET PO SCH (08:32)
[2023-02-17] MEDS: SEVELAMER CARBONATE 800 MG TABLET PO SCH ×3 (08:33→18:43)
[2023-02-17] MEDS ORDERED: CLOPIDOGREL BISULFATE 75 MG TABLET PO SCH (09:00)
[2023-02-17] MEDS: CLOPIDOGREL BISULFATE 75 MG TABLET PO SCH (09:00)
[2023-02-17] MEDS: AmLODIPine BESYLATE 5 MG TABLET PO SCH ×2 (09:00→16:18)
[2023-02-17] MEDS: ASPIRIN 81 MG CHEWABLE TABLET PO SCH (09:00)
[2023-02-17] MEDS: DOCUSATE SODIUM 100 MG CAPSULE PO SCH ×2 (09:00→21:01)
[2023-02-17] MEDS: CARVEDILOL 6.25 MG TABLET PO SCH ×2 (09:00→21:01)
[2023-02-17] MEDS ORDERED: SODIUM CHLORIDE 0.9% 1,000 ML ONE (09:52)
[2023-02-17] MEDS ORDERED: VANCOMYCIN HCL 500 MG in DEXTROSE 5%-WATER 100 ML IV ONE (17:00)
[2023-02-17] MEDS ORDERED: HEPARIN SODIUM,PORCINE 1,000 UNITS/ML VIAL IVP ONE (17:42)
[2023-02-17 19:57] LABS: GLUCOMETER DEV NAME(LOC) 6S.2
[2023-02-17] MEDS: HYDROCODONE/ACETAMINOPHEN 5-325 MG TABLET PO PRN (21:01)
[2023-02-17] MEDS: TAMSULOSIN HCL 0.4 MG CAPSULE PO SCH (21:01)
[2023-02-18 06:06] VITALS: BP 148/83; PULSE 85; RESP 20; TEMP 98.3
[2023-02-18 06:28] LABS: GLUCOMETER DEV NAME(LOC) 4E.2
[2023-02-18 07:42] LABS: GLUCOMETER DEV NAME(LOC) 6N.1
[2023-02-18 07:52] VITALS: BP 150/78; PULSE 82; RESP 20; TEMP 98.2
[2023-02-18] MEDS: HEPARIN SODIUM,PORCINE 5,000 UNITS/ML VIAL SQ SCH ×2 (08:00→16:00)
[2023-02-18] MEDS: OXYGEN THERAPY IH SCH ×2 (08:00→20:00)
[2023-02-18] MEDS: SEVELAMER CARBONATE 800 MG TABLET PO SCH ×3 (08:27→17:44)
[2023-02-18] MEDS: DOCUSATE SODIUM 100 MG CAPSULE PO SCH ×2 (08:28→20:09)
[2023-02-18] MEDS: CLOPIDOGREL BISULFATE 75 MG TABLET PO SCH (08:28)
[2023-02-18] MEDS: CARVEDILOL 6.25 MG TABLET PO SCH ×2 (08:28→20:09)
[2023-02-18] MEDS: ASPIRIN 81 MG CHEWABLE TABLET PO SCH (08:29)
[2023-02-18] MEDS: PANTOPRAZOLE SODIUM 40 MG DR TABLET PO SCH (08:29)
[2023-02-18] MEDS: AmLODIPine BESYLATE 5 MG TABLET PO SCH (08:29)
[2023-02-18] MEDS ORDERED: NICOTINE 21 MG/24 HOUR PATCH TD SCH (09:00)
[2023-02-18 15:19] VITALS: BP 148/82; PULSE 84; RESP 20; TEMP 98.5
[2023-02-18 18:52] LABS: GLUCOMETER DEV NAME(LOC) 4E.2
[2023-02-18 19:40] VITALS: BP 162/74; PULSE 92; RESP 20; TEMP 98.5
[2023-02-18] MEDS: TAMSULOSIN HCL 0.4 MG CAPSULE PO SCH (20:09)
[2023-02-18 20:58] LABS: GLUCOMETER DEV NAME(LOC) 6S.1B
[2023-02-19] VITALS (16 sets, daily range): BP systolic 106–175; BP diastolic 56–81; PULSE 59–90; RESP 18–20; TEMP 96.7–97.9
[2023-02-19 06:57] LABS: BASOPHILS % (AUTO) 0.3 % (0.0-2.0); EOSINOPHILS % (AUTO) 0.8 % (1.0-6.0); HEMATOCRIT 25.2 % (41-53); HEMOGLOBIN 8.2 g/dL (13.5-17.5); LYMPHOCYTES # (AUTO) 0.6 K/uL (1.0-4.8); LYMPHOCYTES % (AUTO) 9.6 % (22.0-44.0); MEAN CORPUSCULAR HEMOGLOBIN 28.5 pg (26.0-34.0); MEAN CORPUSCULAR HGB CONC 32.5 G/dL (31.0-37.0); MEAN CORPUSCULAR VOLUME 88 fL (80-100); MONOCYTES # (AUTO) 0.4 K/uL (0.1-1.0); MONOCYTES % (AUTO) 6.9 % (2.0-9.0); NEUTROPHILS # (AUTO) 5.1 K/uL (1.8-7.7); NEUTROPHILS % (AUTO) 82.4 % (40.0-70.0); PLATELET COUNT (AUTO) 139 K/uL (150-450); RED BLOOD CELL COUNT(AUTO) 2.87 MIL/uL (4.50-5.90); RED CELL DISTRIBUTION WIDTH 16.4 % (11.5-14.5)
[2023-02-19 07:06] LABS: CREATININE 4.54 mg/dL (0.60-1.30); POTASSIUM 4.8 mmol/L (3.5-5.1)
[2023-02-19] MEDS ORDERED: HEPARIN SODIUM 1000 UNITS/NS 500 ML ONE (07:32)
[2023-02-19] MEDS ORDERED: IODIXANOL 320 MG/ML 50 ML VIAL ONE (07:32)
[2023-02-19] MEDS ORDERED: SODIUM BICARBONATE 50 MEQ/50 ML VIAL ONE (07:32)
[2023-02-19] MEDS ORDERED: LIDOCAINE/PF 1% 30 ML VIAL ONE (07:32)
[2023-02-19] MEDS ORDERED: IODIXANOL 320 MG/ML 100 ML VIAL ONE (07:32)
[2023-02-19] MEDS ORDERED: FentaNYL CITRATE PF 100 MCG/2 ML VIAL ONE ×2 (07:41→08:34)
[2023-02-19] MEDS ORDERED: NITROGLYCERIN 50 MG/D5% WATER 0 ML ONE (07:42)
[2023-02-19] MEDS ORDERED: MIDAZOLAM HCL 2 MG/2 ML VIAL ONE ×2 (07:42→09:02)
[2023-02-19] MEDS ORDERED: LIDOCAINE 1% 30 ML/SOD BICARB 8.4% 4 ML SQ ONE (08:00)
[2023-02-19] MEDS ORDERED: FentaNYL CITRATE PF 100 MCG/2 ML VIAL IVP ONE ×5 (08:00→09:15)
[2023-02-19] MEDS: HEPARIN SODIUM,PORCINE 5,000 UNITS/ML VIAL SQ SCH ×4 (08:00→23:46)
[2023-02-19] MEDS ORDERED: MIDAZOLAM HCL 2 MG/2 ML VIAL IVP ONE ×6 (08:00→09:15)
[2023-02-19] MEDS: OXYGEN THERAPY IH SCH ×2 (08:00→19:26)
[2023-02-19] MEDS ORDERED: HEPARIN SODIUM 1000 UNITS/NS 500 ML IARTER ONE (08:00)
[2023-02-19] MEDS ORDERED: IODIXANOL 320 MG/ML 100 ML VIAL IARTER ONE (08:00)
[2023-02-19] MEDS: SEVELAMER CARBONATE 800 MG TABLET PO SCH ×4 (08:00→18:05)
[2023-02-19 08:42] LABS: CHOL/HDL RATIO 3.7 (4.2-7.3); PHOSPHORUS 2.4 mg/dL (2.5-4.9)
[2023-02-19] MEDS: CLOPIDOGREL BISULFATE 75 MG TABLET PO SCH (09:00)
[2023-02-19] MEDS ORDERED: HEPARIN SODIUM,PORCINE 1,000 UNITS/ML 10 ML VIAL IVP ONE (09:00)
[2023-02-19] MEDS ORDERED: PROTAMINE SULFATE 10 MG/ML 5 ML VIAL ONE (09:06)
[2023-02-19] MEDS ORDERED: PROTAMINE SULFATE 10 MG/ML 5 ML VIAL IVP ONE (09:15)
[2023-02-19] MEDS ORDERED: ASPIRIN 81 MG CHEWABLE TABLET ONE (09:20)
[2023-02-19] MEDS ORDERED: CLOPIDOGREL BISULFATE 75 MG TABLET ONE (09:20)
[2023-02-19] MEDS ORDERED: CLOPIDOGREL BISULFATE 75 MG TABLET PO ONE (09:30)
[2023-02-19] MEDS: ASPIRIN 81 MG CHEWABLE TABLET PO SCH (10:08)
[2023-02-19] MEDS: AmLODIPine BESYLATE 5 MG TABLET PO SCH (12:15)
[2023-02-19] MEDS: DOCUSATE SODIUM 100 MG CAPSULE PO SCH ×2 (12:15→19:52)
[2023-02-19] MEDS: CARVEDILOL 6.25 MG TABLET PO SCH ×2 (12:15→19:52)
[2023-02-19] MEDS: PANTOPRAZOLE SODIUM 40 MG DR TABLET PO SCH (12:15)
[2023-02-19 14:08] LABS: GLUCOMETER DEV NAME(LOC) 6N.1
[2023-02-19 14:08] LABS: GLUCOMETER DEV NAME(LOC) 6S.2
[2023-02-19 14:38] LABS: CALCIUM, TOTAL 8.8 mg/dL (8.8-10.5); CREATININE 4.9 mg/dL (0.60-1.30); POTASSIUM 4.3 mmol/L (3.5-5.1)
[2023-02-19] MEDS: ACETAMINOPHEN 325 MG TABLET PO PRN (19:52)
[2023-02-19] MEDS: TAMSULOSIN HCL 0.4 MG CAPSULE PO SCH (19:54)
[2023-02-19] MEDS: ATORVASTATIN CALCIUM 20 MG TABLET PO SCH (19:54)
[2023-02-20] VITALS (14 sets, daily range): BP systolic 122–154; BP diastolic 55–84; PULSE 72–126; RESP 18–20; TEMP 96.8–98.4
[2023-02-20] MEDS: HYDROCODONE/ACETAMINOPHEN 5-325 MG TABLET PO PRN ×3 (03:01→23:24)
[2023-02-20 06:03] LABS: BASOPHILS % (AUTO) 0.4 % (0.0-2.0); EOSINOPHILS % (AUTO) 1.7 % (1.0-6.0); HEMATOCRIT 24.4 % (41-53); HEMOGLOBIN 7.8 g/dL (13.5-17.5); LYMPHOCYTES # (AUTO) 0.6 K/uL (1.0-4.8); MEAN CORPUSCULAR HEMOGLOBIN 28.3 pg (26.0-34.0); MEAN CORPUSCULAR VOLUME 88 fL (80-100); MONOCYTES # (AUTO) 0.4 K/uL (0.1-1.0); MONOCYTES % (AUTO) 6.9 % (2.0-9.0); NEUTROPHILS # (AUTO) 4.1 K/uL (1.8-7.7); PLATELET COUNT (AUTO) 156 K/uL (150-450); RED BLOOD CELL COUNT(AUTO) 2.76 MIL/uL (4.50-5.90); RED CELL DISTRIBUTION WIDTH 16.2 % (11.5-14.5)
[2023-02-20 06:15] LABS: CREATININE 5.42 mg/dL (0.60-1.30); VANCOMYCIN,RANDOM 19.8 mcg/mL (25.0-50.0)
[2023-02-20] MEDS: PANTOPRAZOLE SODIUM 40 MG DR TABLET PO SCH (08:13)
[2023-02-20] MEDS: SEVELAMER CARBONATE 800 MG TABLET PO SCH ×3 (08:13→18:00)
[2023-02-20] MEDS: HEPARIN SODIUM,PORCINE 5,000 UNITS/ML VIAL SQ SCH ×4 (08:13→23:32)
[2023-02-20] MEDS: ASPIRIN 81 MG CHEWABLE TABLET PO SCH (08:13)
[2023-02-20] MEDS: CARVEDILOL 6.25 MG TABLET PO SCH ×2 (08:14→21:22)
[2023-02-20] MEDS: AmLODIPine BESYLATE 5 MG TABLET PO SCH (08:14)
[2023-02-20] MEDS: DOCUSATE SODIUM 100 MG CAPSULE PO SCH ×2 (08:14→20:58)
[2023-02-20] MEDS: CLOPIDOGREL BISULFATE 75 MG TABLET PO SCH (08:14)
[2023-02-20] MEDS ORDERED: SODIUM CHLORIDE 0.9% 1,000 ML ONE (10:06)
[2023-02-20] MEDS ORDERED: HEPARIN SODIUM,PORCINE 1,000 UNITS/ML VIAL IVP ONE (12:00)
[2023-02-20] MEDS: EPOETIN ALFA 10,000 UNITS/ML 2 ML VIAL SQ SCH (15:59)
[2023-02-20] MEDS: FOLIC ACID/VIT B COMPLEX AND C TABLET PO SCH (16:00)
[2023-02-20] MEDS: TAMSULOSIN HCL 0.4 MG CAPSULE PO SCH (20:58)
[2023-02-20] MEDS: ATORVASTATIN CALCIUM 20 MG TABLET PO SCH (20:59)
[2023-02-20] MEDS: ZOLPIDEM TARTRATE 5 MG TABLET PO PRN (23:30)
[2023-02-21] MEDS ORDERED: VANCOMYCIN 1GM/WATER(PEG/NADA) 200 ML IV ONE (05:00)
[2023-02-21 05:03] VITALS: BP 142/72; PULSE 76; RESP 19; TEMP 98.3
[2023-02-21] MEDS ORDERED: SODIUM CHLORIDE 0.9% 500 ML IV ONE (05:04)
[2023-02-21 05:48] LABS: GLUCOMETER DEV NAME(LOC) 6S.1B
[2023-02-21 06:40] LABS: BASOPHILS % (AUTO) 0.4 % (0.0-2.0); EOSINOPHILS % (AUTO) 1.4 % (1.0-6.0); HEMATOCRIT 24.5 % (41-53); HEMOGLOBIN 7.8 g/dL (13.5-17.5); LYMPHOCYTES # (AUTO) 0.6 K/uL (1.0-4.8); LYMPHOCYTES % (AUTO) 10.4 % (22.0-44.0); MEAN CORPUSCULAR HEMOGLOBIN 28.3 pg (26.0-34.0); MEAN CORPUSCULAR VOLUME 89 fL (80-100); MONOCYTES # (AUTO) 0.4 K/uL (0.1-1.0); MONOCYTES % (AUTO) 7.4 % (2.0-9.0); NEUTROPHILS # (AUTO) 4.5 K/uL (1.8-7.7); NEUTROPHILS % (AUTO) 80.4 % (40.0-70.0); PLATELET COUNT (AUTO) 153 K/uL (150-450); RED BLOOD CELL COUNT(AUTO) 2.77 MIL/uL (4.50-5.90); RED CELL DISTRIBUTION WIDTH 16.2 % (11.5-14.5)
[2023-02-21 06:50] LABS: CALCIUM, TOTAL 8.6 mg/dL (8.8-10.5); CREATININE 4.45 mg/dL (0.60-1.30); POTASSIUM 4.6 mmol/L (3.5-5.1)
[2023-02-21] MEDS: HEPARIN SODIUM,PORCINE 5,000 UNITS/ML VIAL SQ SCH ×3 (08:00→23:04)
[2023-02-21 08:39] VITALS: BP 157/77; PULSE 76; RESP 18; TEMP 97.7
[2023-02-21] MEDS: CLOPIDOGREL BISULFATE 75 MG TABLET PO SCH (08:41)
[2023-02-21] MEDS: CARVEDILOL 6.25 MG TABLET PO SCH ×2 (08:41→20:54)
[2023-02-21] MEDS: HYDROCODONE/ACETAMINOPHEN 5-325 MG TABLET PO PRN (08:41)
[2023-02-21] MEDS: SEVELAMER CARBONATE 800 MG TABLET PO SCH ×3 (08:41→17:16)
[2023-02-21] MEDS: AmLODIPine BESYLATE 5 MG TABLET PO SCH (08:41)
[2023-02-21] MEDS: DOCUSATE SODIUM 100 MG CAPSULE PO SCH ×2 (08:41→20:54)
[2023-02-21] MEDS: PANTOPRAZOLE SODIUM 40 MG DR TABLET PO SCH (08:42)
[2023-02-21] MEDS: ASPIRIN 81 MG CHEWABLE TABLET PO SCH (08:42)
[2023-02-21] MEDS: FOLIC ACID/VIT B COMPLEX AND C TABLET PO SCH (08:42)
[2023-02-21] MEDS ORDERED: LIDOCAINE 1%/EPI 1:200,000/PF 10 ML VIAL ONE (10:32)
[2023-02-21] MEDS ORDERED: BUPIVACAINE HCL 0.5% 50 ML VIAL ONE (10:32)
[2023-02-21] MEDS ORDERED: SODIUM CL IRRIG SOLN BAG 6,000 ML IRRIG ONE (10:33)
[2023-02-21] MEDS ORDERED: SODIUM CHLORIDE 0.9% 1,000 ML ONE (11:38)
[2023-02-21] MEDS ORDERED: ACETAMINOPHEN 1000 MG/ISO-OSM 100 ML IV ONE ×2 (14:52→15:00)
[2023-02-21] MEDS ORDERED: FentaNYL CITRATE PF 100 MCG/2 ML VIAL IVP PRN (15:15)
[2023-02-21] MEDS ORDERED: FentaNYL CITRATE PF 100 MCG/2 ML VIAL ONE (15:15)
[2023-02-21 17:02] VITALS: BP 125/55; PULSE 60; RESP 18; TEMP 97.7
[2023-02-21 20:45] VITALS: BP 156/81; RESP 18; TEMP 97.4
[2023-02-21] MEDS: TAMSULOSIN HCL 0.4 MG CAPSULE PO SCH (20:54)
[2023-02-21] MEDS: ATORVASTATIN CALCIUM 20 MG TABLET PO SCH (20:54)
[2023-02-22] VITALS (10 sets, daily range): BP systolic 100–155; BP diastolic 60–70; PULSE 68–86; RESP 16–20; TEMP 97.9–98.7
[2023-02-22 01:52] LABS: GLUCOMETER DEV NAME(LOC) 4E.2
[2023-02-22] MEDS ORDERED: KETAMINE HCL 50 MG/ML 10 ML VIAL IVP ONE (05:52)
[2023-02-22] MEDS ORDERED: DiphenhydrAMINE HCL 50 MG/ML VIAL IVP ONE ×2 (05:52→09:00)
[2023-02-22] MEDS ORDERED: PROPOFOL 1% ISO-OSM 1000 MG/100 ML BOTTLE IV ONE (05:52)
[2023-02-22] MEDS ORDERED: LIDOCAINE/PF 2% 5 ML VIAL IM ONE (05:52)
[2023-02-22 06:38] LABS: BASOPHILS % (AUTO) 0.6 % (0.0-2.0); EOSINOPHILS % (AUTO) 0.5 % (1.0-6.0); HEMATOCRIT 23.3 % (41-53); HEMOGLOBIN 7.7 g/dL (13.5-17.5); LYMPHOCYTES # (AUTO) 0.4 K/uL (1.0-4.8); LYMPHOCYTES % (AUTO) 6.1 % (22.0-44.0); MEAN CORPUSCULAR HEMOGLOBIN 29.3 pg (26.0-34.0); MEAN CORPUSCULAR HGB CONC 33.2 G/dL (31.0-37.0); MEAN CORPUSCULAR VOLUME 88 fL (80-100); MONOCYTES # (AUTO) 0.4 K/uL (0.1-1.0); MONOCYTES % (AUTO) 6.3 % (2.0-9.0); NEUTROPHILS # (AUTO) 5.7 K/uL (1.8-7.7); PLATELET COUNT (AUTO) 140 K/uL (150-450); RED BLOOD CELL COUNT(AUTO) 2.64 MIL/uL (4.50-5.90); RED CELL DISTRIBUTION WIDTH 16.7 % (11.5-14.5)
[2023-02-22 06:42] LABS: NEUTROPHILS % (AUTO) 86.5 % (40.0-70.0)
[2023-02-22] MEDS ORDERED: SODIUM CHLORIDE 0.9% 1,000 ML ONE (06:49)
[2023-02-22 06:53] LABS: CALCIUM, TOTAL 9.1 mg/dL (8.8-10.5); CREATININE 5.03 mg/dL (0.60-1.30); POTASSIUM 4.8 mmol/L (3.5-5.1)
[2023-02-22] MEDS ORDERED: BUPIVACAINE HCL/PF 0.5% 10 ML VIAL ONE (07:04)
[2023-02-22] MEDS ORDERED: SODIUM CL IRRIG SOLN BAG 3,000 ML IRRIG ONE (07:05)
[2023-02-22] MEDS ORDERED: LIDOCAINE 1%/EPI 1:200,000/PF 10 ML VIAL ONE (07:05)
[2023-02-22] MEDS ORDERED: THROMBIN, BOVINE 20000 UNITS/VIAL POWDER TP ONE ×3 (08:21→08:24)
[2023-02-22] MEDS ORDERED: GELATIN SPONGE,ABSORBABLE 100 MM TP ONE (08:24)
[2023-02-22] MEDS ORDERED: LIDOCAINE/PF 1% 30 ML VIAL ONE (08:26)
[2023-02-22] MEDS ORDERED: DiphenhydrAMINE HCL 50 MG/ML VIAL ONE (08:56)
[2023-02-22] MEDS: DOCUSATE SODIUM 100 MG CAPSULE PO SCH ×2 (09:00→20:31)
[2023-02-22] MEDS: CLOPIDOGREL BISULFATE 75 MG TABLET PO SCH (09:00)
[2023-02-22] MEDS: SEVELAMER CARBONATE 800 MG TABLET PO SCH ×3 (09:00→18:16)
[2023-02-22] MEDS: AmLODIPine BESYLATE 5 MG TABLET PO SCH (09:00)
[2023-02-22] MEDS: EPOETIN ALFA 10,000 UNITS/ML 2 ML VIAL SQ SCH ×2 (09:00→19:36)
[2023-02-22] MEDS: CARVEDILOL 6.25 MG TABLET PO SCH ×2 (09:00→20:31)
[2023-02-22] MEDS: ASPIRIN 81 MG CHEWABLE TABLET PO SCH (09:00)
[2023-02-22] MEDS: PANTOPRAZOLE SODIUM 40 MG DR TABLET PO SCH (09:00)
[2023-02-22] MEDS: HEPARIN SODIUM,PORCINE 5,000 UNITS/ML VIAL SQ SCH ×2 (09:00→15:55)
[2023-02-22] MEDS: FOLIC ACID/VIT B COMPLEX AND C TABLET PO SCH (09:00)
[2023-02-22 13:43] LABS: GLUCOMETER DEV NAME(LOC) 6S.2
[2023-02-22] MEDS ORDERED: *CLINICAL-LEVOFLOXACIN IVPB DOSING CLINICAL SCH (17:00)
[2023-02-22] MEDS ORDERED: LEVOFLOXACIN 750 MG/D5% WATER 150 ML IV ONE (17:00)
[2023-02-22] MEDS: HYDROCODONE/ACETAMINOPHEN 5-325 MG TABLET PO PRN (18:15)
[2023-02-22] MEDS: ATORVASTATIN CALCIUM 20 MG TABLET PO SCH (20:30)
[2023-02-22] MEDS: TAMSULOSIN HCL 0.4 MG CAPSULE PO SCH (20:31)
[2023-02-22] MEDS: ZOLPIDEM TARTRATE 5 MG TABLET PO PRN (20:31)
[2023-02-23 04:15] VITALS: BP 124/73; PULSE 86; RESP 20; TEMP 98
[2023-02-23] MEDS ORDERED: KETAMINE HCL 50 MG/ML 10 ML VIAL IVP ONE (06:21)
[2023-02-23] MEDS ORDERED: 0.9% SODIUM CHLORIDE 10 ML VIAL IVP ONE (06:21)
[2023-02-23] MEDS ORDERED: LIDOCAINE/PF 2% 5 ML VIAL IM ONE (06:21)
[2023-02-23] MEDS ORDERED: PROPOFOL 1% ISO-OSM 1000 MG/100 ML BOTTLE IV ONE (06:21)
[2023-02-23] MEDS: HEPARIN SODIUM,PORCINE 5,000 UNITS/ML VIAL SQ SCH ×4 (08:00→23:48)
[2023-02-23] MEDS: SEVELAMER CARBONATE 800 MG TABLET PO SCH ×3 (08:03→16:10)
[2023-02-23] MEDS: DOCUSATE SODIUM 100 MG CAPSULE PO SCH ×3 (08:03→20:20)
[2023-02-23] MEDS: ASPIRIN 81 MG CHEWABLE TABLET PO SCH (08:03)
[2023-02-23] MEDS: CARVEDILOL 6.25 MG TABLET PO SCH ×2 (08:03→20:15)
[2023-02-23] MEDS: HYDROCODONE/ACETAMINOPHEN 5-325 MG TABLET PO PRN ×2 (08:03→20:15)
[2023-02-23] MEDS: CLOPIDOGREL BISULFATE 75 MG TABLET PO SCH (08:03)
[2023-02-23] MEDS: PANTOPRAZOLE SODIUM 40 MG DR TABLET PO SCH (08:03)
[2023-02-23] MEDS: AmLODIPine BESYLATE 5 MG TABLET PO SCH (08:03)
[2023-02-23] MEDS: FOLIC ACID/VIT B COMPLEX AND C TABLET PO SCH (08:13)
[2023-02-23 08:45] VITALS: BP 167/79; PULSE 84; RESP 18; TEMP 97.6
[2023-02-23] MEDS ORDERED: IOHEXOL 350 MG/ML 150 ML VIAL ONE (09:58)
[2023-02-23] MEDS ORDERED: SODIUM CHLORIDE 0.9% 100 ML ONE (09:58)
[2023-02-23 10:37] LABS: GLUCOMETER DEV NAME(LOC) 6N.2B
[2023-02-23 20:06] VITALS: BP 149/63; PULSE 77; RESP 20; TEMP 97.6
[2023-02-23] MEDS: TAMSULOSIN HCL 0.4 MG CAPSULE PO SCH ×2 (20:15→20:20)
[2023-02-23] MEDS: ATORVASTATIN CALCIUM 20 MG TABLET PO SCH (20:15)
[2023-02-24] VITALS (15 sets, daily range): BP systolic 78–177; BP diastolic 43–89; PULSE 71–89; RESP 18; TEMP 97.4–98
[2023-02-24 02:13] LABS: GLUCOMETER DEV NAME(LOC) 4E.2
[2023-02-24 02:13] LABS: GLUCOMETER DEV NAME(LOC) 6N.2B
[2023-02-24] MEDS ORDERED: SODIUM CHLORIDE 0.9% 2,000 ML ONE (07:41)
[2023-02-24] MEDS: CARVEDILOL 6.25 MG TABLET PO SCH ×3 (07:50→21:27)
[2023-02-24] MEDS: HEPARIN SODIUM,PORCINE 5,000 UNITS/ML VIAL SQ SCH ×4 (07:50→23:16)
[2023-02-24] MEDS: AmLODIPine BESYLATE 5 MG TABLET PO SCH (07:50)
[2023-02-24 07:57] LABS: GLUCOMETER DEV NAME(LOC) 6N.2B
[2023-02-24 07:57] LABS: GLUCOMETER DEV NAME(LOC) 6S.2
[2023-02-24] MEDS: ASPIRIN 81 MG CHEWABLE TABLET PO SCH (08:04)
[2023-02-24] MEDS: SEVELAMER CARBONATE 800 MG TABLET PO SCH ×3 (08:04→17:54)
[2023-02-24] MEDS: DOCUSATE SODIUM 100 MG CAPSULE PO SCH ×2 (08:05→21:26)
[2023-02-24] MEDS: PANTOPRAZOLE SODIUM 40 MG DR TABLET PO SCH (08:05)
[2023-02-24] MEDS: CLOPIDOGREL BISULFATE 75 MG TABLET PO SCH (08:05)
[2023-02-24] MEDS: FOLIC ACID/VIT B COMPLEX AND C TABLET PO SCH (09:00)
[2023-02-24] MEDS ORDERED: HEPARIN SODIUM,PORCINE 1,000 UNITS/ML VIAL IVCATH ONE ×2 (09:45)
[2023-02-24] MEDS ORDERED: VANCOMYCIN 1GM/WATER(PEG/NADA) 200 ML IV PRN (16:00)
[2023-02-24] MEDS ORDERED: VANCOMYCIN 1GM/WATER(PEG/NADA) 200 ML IV ONE (16:00)
[2023-02-24] MEDS: LEVOFLOXACIN 500 MG/D5% WATER 100 ML IV SCH (16:46)
[2023-02-24] MEDS: EPOETIN ALFA 10,000 UNITS/ML 2 ML VIAL SQ SCH (16:58)
[2023-02-24] MEDS ORDERED: HEPARIN SODIUM,PORCINE 1,000 UNITS/ML VIAL IVP ONE (17:22)
[2023-02-24 20:02] LABS: GLUCOMETER DEV NAME(LOC) 6N.1
[2023-02-24] MEDS: TAMSULOSIN HCL 0.4 MG CAPSULE PO SCH (21:26)
[2023-02-24] MEDS: ATORVASTATIN CALCIUM 20 MG TABLET PO SCH (21:26)
[2023-02-25 03:45] VITALS: BP 151/73; PULSE 83; RESP 18; TEMP 98
[2023-02-25 06:57] LABS: GLUCOMETER DEV NAME(LOC) 6N.1
[2023-02-25] MEDS ORDERED: LIDOCAINE/PF 1% 2 ML VIAL ONE (07:12)
[2023-02-25] MEDS ORDERED: VANCOMYCIN HCL 1 GM/VIAL ONE ×2 (07:12)
[2023-02-25] MEDS ORDERED: SODIUM CL IRRIG SOLN BAG 6,000 ML IRRIG ONE (07:12)
[2023-02-25] MEDS: SEVELAMER CARBONATE 800 MG TABLET PO SCH ×3 (07:55→17:45)
[2023-02-25] MEDS: DOCUSATE SODIUM 100 MG CAPSULE PO SCH ×2 (07:55→20:34)
[2023-02-25] MEDS: ASPIRIN 81 MG CHEWABLE TABLET PO SCH (07:55)
[2023-02-25] MEDS: CARVEDILOL 6.25 MG TABLET PO SCH ×2 (07:55→20:33)
[2023-02-25] MEDS: FOLIC ACID/VIT B COMPLEX AND C TABLET PO SCH (07:55)
[2023-02-25] MEDS: HEPARIN SODIUM,PORCINE 5,000 UNITS/ML VIAL SQ SCH ×3 (07:55→23:12)
[2023-02-25] MEDS: CLOPIDOGREL BISULFATE 75 MG TABLET PO SCH (07:56)
[2023-02-25] MEDS: AmLODIPine BESYLATE 5 MG TABLET PO SCH (07:56)
[2023-02-25] MEDS: PANTOPRAZOLE SODIUM 40 MG DR TABLET PO SCH (07:56)
[2023-02-25 08:09] VITALS: BP 148/76; PULSE 87; RESP 18; TEMP 98.4
[2023-02-25] MEDS ORDERED: SODIUM CHLORIDE 0.9% 1,000 ML ONE (10:30)
[2023-02-25 10:47] LABS: BASOPHILS % (AUTO) 0.5 % (0.0-2.0); EOSINOPHILS % (AUTO) 1.4 % (1.0-6.0); HEMOGLOBIN 7.7 g/dL (13.5-17.5); LYMPHOCYTES # (AUTO) 0.6 K/uL (1.0-4.8); LYMPHOCYTES % (AUTO) 9.6 % (22.0-44.0); MEAN CORPUSCULAR HEMOGLOBIN 29.1 pg (26.0-34.0); MEAN CORPUSCULAR HGB CONC 32.1 G/dL (31.0-37.0); MEAN CORPUSCULAR VOLUME 91 fL (80-100); MONOCYTES # (AUTO) 0.4 K/uL (0.1-1.0); MONOCYTES % (AUTO) 7.3 % (2.0-9.0); NEUTROPHILS # (AUTO) 4.9 K/uL (1.8-7.7); NEUTROPHILS % (AUTO) 81.2 % (40.0-70.0); PLATELET COUNT (AUTO) 189 K/uL (150-450); RED BLOOD CELL COUNT(AUTO) 2.65 MIL/uL (4.50-5.90); RED CELL DISTRIBUTION WIDTH 18.5 % (11.5-14.5)
[2023-02-25 10:58] LABS: ANION GAP 9 mmol/L (8-16); CARBON DIOXIDE 28 mmol/L (22-29); CHLORIDE 97 mmol/L (98-107); GLOMERULAR FILTR. RATE CALC 17 mL/min (>60); GLUCOSE,RANDOM 103 mg/dL (70-110); POTASSIUM 4.6 mmol/L (3.5-5.1); SODIUM SERUM 134 mmol/L (136-145)
[2023-02-25 11:04] LABS: ALBUMIN 2.2 g/dL (3.4-5.0); ALKALINE PHOSPHATASE 76 U/L (46-116); ASPARTATE AMINOTRANSFERASE 16 U/L (15-37); BILIRUBIN,TOTAL 0.3 mg/dL (0.1-1.0); TOTAL PROTEIN, SERUM 6.3 g/dL (6.4-8.2)
[2023-02-25 11:16] LABS: ALANINE AMINOTRANSFERASE < 6 U/L (12-78)
[2023-02-25] MEDS ORDERED: BUPIVACAINE HCL 0.25% 50 ML VIAL PERC ONE (11:39)
[2023-02-25] MEDS ORDERED: VANCOMYCIN HCL 1 GM/VIAL IRRIG ONE (11:40)
[2023-02-25] MEDS ORDERED: FentaNYL CITRATE PF 100 MCG/2 ML VIAL IVP PRN (12:00)
[2023-02-25 15:37] VITALS: BP 150/78; PULSE 84; RESP 20; TEMP 98.2
[2023-02-25 19:24] VITALS: BP 149/72; PULSE 81; RESP 18; TEMP 97.6
[2023-02-25] MEDS: OXYGEN THERAPY IH SCH (20:00)
[2023-02-25] MEDS: ATORVASTATIN CALCIUM 20 MG TABLET PO SCH (20:33)
[2023-02-25] MEDS: TAMSULOSIN HCL 0.4 MG CAPSULE PO SCH (20:33)
[2023-02-26] MEDS: HYDROCODONE/ACETAMINOPHEN 5-325 MG TABLET PO PRN (00:39)
[2023-02-26 04:05] VITALS: BP 147/69; PULSE 90; RESP 18; TEMP 97.9
[2023-02-26] MEDS ORDERED: PHENYLEPHRINE HCL 10 MG/ML VIAL IVP ONE (06:17)
[2023-02-26] MEDS ORDERED: MIDAZOLAM HCL 2 MG/2 ML VIAL IVP ONE (06:17)
[2023-02-26] MEDS ORDERED: DiphenhydrAMINE HCL 50 MG/ML VIAL IVP ONE (06:17)
[2023-02-26] MEDS ORDERED: KETAMINE HCL 50 MG/ML 10 ML VIAL IVP ONE (06:17)
[2023-02-26] MEDS ORDERED: PROPOFOL 1% ISO-OSM 1000 MG/100 ML BOTTLE IV ONE (06:17)
[2023-02-26] MEDS ORDERED: EPHEDrine SULFATE 50 MG/ML VIAL IM ONE (06:17)
[2023-02-26 07:30] VITALS: BP 153/76; PULSE 80; RESP 19; TEMP 97.8
[2023-02-26] MEDS: HEPARIN SODIUM,PORCINE 5,000 UNITS/ML VIAL SQ SCH ×3 (08:00→23:46)
[2023-02-26] MEDS: OXYGEN THERAPY IH SCH ×2 (08:00→20:00)
[2023-02-26] MEDS: CLOPIDOGREL BISULFATE 75 MG TABLET PO SCH (08:53)
[2023-02-26] MEDS: SEVELAMER CARBONATE 800 MG TABLET PO SCH ×3 (08:53→17:42)
[2023-02-26] MEDS: FOLIC ACID/VIT B COMPLEX AND C TABLET PO SCH (08:53)
[2023-02-26] MEDS: PANTOPRAZOLE SODIUM 40 MG DR TABLET PO SCH (08:54)
[2023-02-26] MEDS: AmLODIPine BESYLATE 5 MG TABLET PO SCH (08:54)
[2023-02-26] MEDS: CARVEDILOL 6.25 MG TABLET PO SCH ×2 (08:54→21:09)
[2023-02-26] MEDS: DOCUSATE SODIUM 100 MG CAPSULE PO SCH ×2 (08:55→21:00)
[2023-02-26] MEDS: ASPIRIN 81 MG CHEWABLE TABLET PO SCH (08:55)
[2023-02-26 09:52] LABS: GLUCOMETER DEV NAME(LOC) 6N.1
[2023-02-26] MEDS: ACETAMINOPHEN 325 MG TABLET PO PRN ×2 (11:08→18:49)
[2023-02-26] MEDS: LEVOFLOXACIN 500 MG/D5% WATER 100 ML IV SCH (17:42)
[2023-02-26] MEDS: TAMSULOSIN HCL 0.4 MG CAPSULE PO SCH (21:00)
[2023-02-26] MEDS: ATORVASTATIN CALCIUM 20 MG TABLET PO SCH (21:09)
[2023-02-27] VITALS (10 sets, daily range): BP systolic 91–166; BP diastolic 55–95; PULSE 65–87; RESP 18–20; TEMP 97.1–98.4
[2023-02-27 06:52] LABS: GLUCOMETER DEV NAME(LOC) 6N.1
[2023-02-27] MEDS: OXYGEN THERAPY IH SCH (08:00)
[2023-02-27] MEDS: HEPARIN SODIUM,PORCINE 5,000 UNITS/ML VIAL SQ SCH ×2 (08:00→16:00)
[2023-02-27] MEDS: FOLIC ACID/VIT B COMPLEX AND C TABLET PO SCH (08:11)
[2023-02-27] MEDS: PANTOPRAZOLE SODIUM 40 MG DR TABLET PO SCH (08:15)
[2023-02-27] MEDS: CLOPIDOGREL BISULFATE 75 MG TABLET PO SCH (08:15)
[2023-02-27] MEDS: ASPIRIN 81 MG CHEWABLE TABLET PO SCH (08:16)
[2023-02-27] MEDS: SEVELAMER CARBONATE 800 MG TABLET PO SCH ×3 (08:16→18:00)
[2023-02-27] MEDS: DOCUSATE SODIUM 100 MG CAPSULE PO SCH (08:16)
[2023-02-27] MEDS ORDERED: ZINC SULFATE 220 MG CAPSULE PO SCH (09:00)
[2023-02-27] MEDS: CARVEDILOL 6.25 MG TABLET PO SCH (09:00)
[2023-02-27] MEDS ORDERED: EPOETIN ALFA 10,000 UNITS/ML VIAL SQ SCH (09:00)
[2023-02-27] MEDS: AmLODIPine BESYLATE 5 MG TABLET PO SCH (09:00)
[2023-02-27] MEDS: ACETAMINOPHEN 325 MG TABLET PO PRN (11:20)
[2023-02-27 11:56] LABS: GLUCOMETER DEV NAME(LOC) 4E.2
[2023-02-27 16:46] LABS: GLUCOMETER DEV NAME(LOC) 6N.1
[2023-02-28] MEDS ORDERED: VANCOMYCIN HCL 750 MG in DEXTROSE 5%-WATER 250 ML IV ONE (05:00)
[2023-02-28 05:47] LABS: GLUCOMETER DEV NAME(LOC) 6N.1
== END 2023-02-27 09:34 | DRG 270 ==
LOC: EMS 08:56 → ICUN 11:40 → 6N 12:01
PROVIDERS: ADMIT Internal Medicine; ATTEND Internal Medicine
PROC: 5A1D70Z Performance of Urinary Filtration, Intermittent, Less than 6 Hours Per Day (ICD-10-PCS; 2023-02-14)
PROC: 04CL3ZZ Extirpation of Matter from Left Femoral Artery, Percutaneous Approach (ICD-10-PCS; 2023-02-15)
PROC: 047L0Z1 Dilation of Left Femoral Artery using Drug-Coated Balloon, Open Approach (ICD-10-PCS; 2023-02-15)
PROC: 04CN3ZZ Extirpation of Matter from Left Popliteal Artery, Percutaneous Approach (ICD-10-PCS; 2023-02-15)
PROC: 04CS3ZZ Extirpation of Matter from Left Posterior Tibial Artery, Percutaneous Approach (ICD-10-PCS; 2023-02-15)
PROC: B4101ZZ Fluoroscopy of Abdominal Aorta using Low Osmolar Contrast (ICD-10-PCS; 2023-02-15)
PROC: B41G1ZZ Fluoroscopy of Left Lower Extremity Arteries using Low Osmolar Contrast (ICD-10-PCS; 2023-02-15)
PROC: 5A1D70Z Performance of Urinary Filtration, Intermittent, Less than 6 Hours Per Day (ICD-10-PCS; 2023-02-16)
PROC: 047S3ZZ Dilation of Left Posterior Tibial Artery, Percutaneous Approach (ICD-10-PCS; 2023-02-16)
PROC: 047K3Z1 Dilation of Right Femoral Artery using Drug-Coated Balloon, Percutaneous Approach (ICD-10-PCS; 2023-02-19)
PROC: 047M3Z1 Dilation of Right Popliteal Artery using Drug-Coated Balloon, Percutaneous Approach (ICD-10-PCS; 2023-02-19)
PROC: 047T3Z1 Dilation of Right Peroneal Artery using Drug-Coated Balloon, Percutaneous Approach (ICD-10-PCS; 2023-02-19)
PROC: 5A1D70Z Performance of Urinary Filtration, Intermittent, Less than 6 Hours Per Day (ICD-10-PCS; 2023-02-20)
PROC: 0Y3M0ZZ Control Bleeding in Right Foot, Open Approach (ICD-10-PCS; 2023-02-21)
PROC: 0JBR0ZZ Excision of Left Foot Subcutaneous Tissue and Fascia, Open Approach (ICD-10-PCS; 2023-02-21)
PROC: 0JBQ0ZZ Excision of Right Foot Subcutaneous Tissue and Fascia, Open Approach (ICD-10-PCS; 2023-02-21)
PROC: 5A1D70Z Performance of Urinary Filtration, Intermittent, Less than 6 Hours Per Day (ICD-10-PCS; 2023-02-22)
PROC: 5A1D70Z Performance of Urinary Filtration, Intermittent, Less than 6 Hours Per Day (ICD-10-PCS; 2023-02-23)
PROC: 0X6L0Z1 Detachment at Right Thumb, High, Open Approach (ICD-10-PCS; 2023-02-25)
PROC: 0X6S0Z1 Detachment at Right Ring Finger, High, Open Approach (ICD-10-PCS; 2023-02-25)
PROC: 0X6T0Z1 Detachment at Left Ring Finger, High, Open Approach (ICD-10-PCS; 2023-02-25)
PROC: 0X6Q0Z1 Detachment at Right Middle Finger, High, Open Approach (ICD-10-PCS; 2023-02-25)
PROC: 0X6R0Z1 Detachment at Left Middle Finger, High, Open Approach (ICD-10-PCS; 2023-02-25)
PROC: 0X6V0Z1 Detachment at Right Little Finger, High, Open Approach (ICD-10-PCS; 2023-02-25)
PROC: 0X6N0Z1 Detachment at Right Index Finger, High, Open Approach (ICD-10-PCS; 2023-02-25)
PROC: 047L3Z1 Dilation of Left Femoral Artery using Drug-Coated Balloon, Percutaneous Approach (ICD-10-PCS; 2023-02-25)
PROC: 047N3Z1 Dilation of Left Popliteal Artery using Drug-Coated Balloon, Percutaneous Approach (ICD-10-PCS; 2023-02-25)
PROC: B44LZZZ Ultrasonography of Femoral Artery (ICD-10-PCS; 2023-02-25)
PROC: 04CK3ZZ Extirpation of Matter from Right Femoral Artery, Percutaneous Approach (ICD-10-PCS; 2023-02-25)
PROC: 04CM3ZZ Extirpation of Matter from Right Popliteal Artery, Percutaneous Approach (ICD-10-PCS; 2023-02-25)
PROC: 04CT3ZZ Extirpation of Matter from Right Peroneal Artery, Percutaneous Approach (ICD-10-PCS; 2023-02-25)
PROC: 0YBN0ZZ Excision of Left Foot, Open Approach (ICD-10-PCS; 2023-02-25)
PROC: 0Y6N0Z9 Detachment at Left Foot, Partial 1st Ray, Open Approach (ICD-10-PCS; 2023-02-25)
PROC: 0Y6N0ZB Detachment at Left Foot, Partial 2nd Ray, Open Approach (ICD-10-PCS; 2023-02-25)
PROC: 0Y6N0ZC Detachment at Left Foot, Partial 3rd Ray, Open Approach (ICD-10-PCS; 2023-02-25)
PROC: 0Y6N0ZD Detachment at Left Foot, Partial 4th Ray, Open Approach (ICD-10-PCS; 2023-02-25)
PROC: 0Y6N0ZF Detachment at Left Foot, Partial 5th Ray, Open Approach (ICD-10-PCS; 2023-02-25)
PROC: 0X6P0Z1 Detachment at Left Index Finger, High, Open Approach (ICD-10-PCS; principal; 2023-02-25 11:20)
PROC: 5A1D70Z Performance of Urinary Filtration, Intermittent, Less than 6 Hours Per Day (ICD-10-PCS; 2023-02-27)
DX: E11.52 Type 2 diabetes mellitus with diabetic peripheral angiopathy with gangrene (principal); N18.6 End stage renal disease; I12.0 Hypertensive chronic kidney disease with stage 5 chronic kidney disease or end stage renal disease; E87.1 Hypo-osmolality and hyponatremia; E87.0 Hyperosmolality and hypernatremia; I96 Gangrene, not elsewhere classified; E44.0 Moderate protein-calorie malnutrition; M86.9 Osteomyelitis, unspecified; E11.69 Type 2 diabetes mellitus with other specified complication; E11.22 Type 2 diabetes mellitus with diabetic chronic kidney disease; Z68.21 Body mass index [BMI] 21.0-21.9, adult; E78.5 Hyperlipidemia, unspecified; D63.1 Anemia in chronic kidney disease; E83.39 Other disorders of phosphorus metabolism; B95.62 Methicillin resistant Staphylococcus aureus infection as the cause of diseases classified elsewhere; N25.0 Renal osteodystrophy; G89.29 Other chronic pain; B96.5 Pseudomonas (aeruginosa) (mallei) (pseudomallei) as the cause of diseases classified elsewhere; I70.223 Atherosclerosis of native arteries of extremities with rest pain, bilateral legs; F41.9 Anxiety disorder, unspecified; N40.0 Benign prostatic hyperplasia without lower urinary tract symptoms; Z79.02 Long term (current) use of antithrombotics/antiplatelets; Z79.4 Long term (current) use of insulin; Z79.82 Long term (current) use of aspirin; Z79.899 Other long term (current) drug therapy; Z87.891 Personal history of nicotine dependence; Z89.519 Acquired absence of unspecified leg below knee; Z91.199 Patient's noncompliance with other medical treatment and regimen due to unspecified reason; Z99.2 Dependence on renal dialysis
CPT/HCPCS: 36200; 37229; 73706; 75630; 75635; 75716; 75962; 80048; 80053; 80061; 80202; 82550; 82607; 82746; 82962; 83090; 83605; 83735; 83880; 83970; 84100; 84145; 84484; 85025; 85610; 85730; 87040; 87070; 87081; 87101; 87186; 87205; 87340; 88304; 88305; 90935; 93005; 93306; 93925; 97162; 97167; 99285; C1724; C2623; C9290; J0131; J0690; J0692; J0885; J1200; J1644; J1956; J2250; J2270; J2370; J2704; J2720; J3010; J3370; J3490; J7030; J7040; J7050; J7060; Q9967; 36415-L1; 36415-TC; Z7610